=== PATIENT | male | born 1965 | race Caucasian/White ===

== ENCOUNTER 2017-12-31 06:31 | Inpatient (IN) | payer SELFPAY ==
[2017-12-31 06:31] VITALS: BMI 28.7
[2017-12-31] MEDS ORDERED: Sodium Chloride 0.9% 1,000 ML IV STA (07:12)
--- NOTE | 2017-12-31 07:17 | ED PDOC ---
HPI: Psych/Substance Abuse Time Seen by Provider: 12/31/17 07:04 Chief Complaint (Nursing): Psychiatric Evaluation Chief Complaint (Provider): Suicidal ideation History Per: Patient History/Exam Limitations: no limitations Onset/Duration Of Symptoms: Hrs (this morning) Associated Symptoms: Suicidal Thoughts, Suicidal Plan Additional Complaint(s): Christiano Osorio is a 52 year old male, with a past medical history of HTN, who presents to the emergency department for suicidal ideation with plan to jump in front of bus this morning. Patient attributes it to chronic alcohol abuse and wanting to stop. Patient reports last drink on Wednesday but had a few sips of Nyquil last night. He denies other drug use or other medical complaints. PMD: None provided. Past Medical History Reviewed: Historical Data, Nursing Documentation, Vital Signs Vital Signs: Last Vital Signs Temp 98.3 F 12/31/17 06:40 Pulse 111 H 12/31/17 06:40 Resp 19 12/31/17 06:40 BP 159/111 H 12/31/17 06:40 Pulse Ox 99 12/31/17 06:40 - Medical History PMH: Anxiety, HTN Denies: Diabetes, Hepatitis, HIV, Hypercholesterolemia, Mitral Valve Prolapse , Pericarditis, Peripheral Edema, Chronic Kidney Disease, Seizures, Sexually Transmitted Disease - Surgical History Surgical History: Appendectomy Denies: Pacemaker - Family History Family History: States: Unknown Family Hx - Social History Current smoker - smoking cessation education provided: No Alcohol: > 2 Drinks/Day Drugs: Denies - Immunization History Hx Tetanus Toxoid Vaccination: No Hx Influenza Vaccination: No Hx Pneumococcal Vaccination: No - Home Medications Home Medications: Ambulatory Orders Medication Instructions Recorded Irbesartan/Hydrochlorothiazide 1 tab PO BID 07/22/16 [Irbesartan-Hydrochlorothiazide 12.5 mg-150 mg] - Allergies Allergies/Adverse Reactions: Allergies Allergy/AdvReac Type Severity Reaction Status Date / Time meperidine AdvReac Intermediate DIZZINESS Verified 07/22/16 17:55 Review of Systems ROS Statement: Except As Marked, All Systems Reviewed And Found Negative Psych: Positive for: Suicidal ideation (with plan) Physical Exam - Reviewed Nursing Documentation Reviewed: Yes Vital Signs Reviewed: Yes - Physical Exam Appears: Positive for: No Acute Distress Head Exam: Positive for: ATRAUMATIC, NORMAL INSPECTION, NORMOCEPHALIC Skin: Positive for: Normal Color, Warm, Dry Eye Exam: Positive for: Normal appearance, EOMI, PERRL Neck: Positive for: Painless ROM Cardiovascular/Chest: Positive for: Regular Rate, Rhythm. Negative for: Murmur Respiratory: Positive for: Normal Breath Sounds. Negative for: Respiratory Distress Gastrointestinal/Abdominal: Positive for: Normal Exam, Soft. Negative for: Tenderness, Guarding, Rebound Back: Positive for: Normal Inspection Extremity: Positive for: Normal ROM (upper and lower extremities). Negative for : Deformity, Swelling Neurologic/Psych: Positive for: Alert, Oriented. Negative for: Motor/Sensory Deficits - Laboratory Results Result Diagrams: 12/31/17 07:52 12/31/17 07:52 - ECG O2 Sat by Pulse Oximetry: 99 (RA) Pulse Ox Interpretation: Normal Medical Decision Making Medical Decision Making: Time: 07:04 Initial Plan: --EKG --Acetaminophen --Alcohol serum --CMP --Drug screen, urine --Salicylate --Urine dipstick --CBC w/ differential --Chest portable [RAD] --Ativan 0.5mg PO --Sodium Chloride 1,000 ml IV 150 mls/hr --Reevaluation Medically stable for psychiatric admission ----- Scribe Attestation: Documented by Adam Anderson, acting as a scribe for Catracho Hanson MD. Provider Scribe Attestation: All medical record entries made by the Scribe were at my direction and personally dictated by me. I have reviewed the chart and agree that the record accurately reflects my personal performance of the history, physical exam, medical decision making, and the department course for this patient. I have also personally directed, reviewed, and agree with the discharge instructions and disposition. 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 This is because of the severity of symptoms shown, intensity of services needed, and/or the medical risk in this patient being treated as an outpatient. - POA Present On Arrival: None
[2017-12-31 08:09] LABS: ALB/GLOB RATIO 1.3 (1.0-2.1); ALBUMIN 4.4 g/dL (3.5-5.0); ALT/SGPT 47 U/L (21-72); AST/SGOT 46 U/L (17-59); BLOOD UREA NITROGEN 9 mg/dl (9-20); CALCIUM 9.1 mg/dL (8.4-10.2); GFR NON-AFRICAN AMERICAN > 60
[2017-12-31 08:10] LABS: ACETAMINOPHEN < 10.0 ug/ml (10.0-30.0); SALICYLATE < 1.0 mg/dl
[2017-12-31 08:17] LABS: BARBITURATES, UR NEGATIVE (NEGATIVE); BENZODIAZEPINES, UR NEGATIVE (NEGATIVE); OPIATES, UR NEGATIVE (NEGATIVE); PHENCYCLIDINE, UR NEGATIVE (NEGATIVE)
[2017-12-31 08:28] LABS: BASO # 0.1 K/uL (0.0-0.2); BASO % 0.6 % (0.0-2.0); EOS # 0.1 K/uL (0.0-0.7); EOS % 1.7 % (0.0-4.0); HEMOGLOBIN 17.5 g/dL (12.0-18.0); LYMPH # 2.4 K/uL (1.0-4.3); LYMPH % 28.5 % (20.0-40.0); MEAN CELL VOLUME 97.7 fl (80.0-94.0); MEAN CORPUSCULAR HEMOGLOBIN 34.1 pg (27.0-31.0); MEAN CORPUSCULAR HGB CONC 34.8 g/dL (33.0-37.0); MEAN PLATELET VOLUME 7.8 fl (7.2-11.7); MONO # 0.6 K/uL (0.0-0.8); MONO % 7.3 % (0.0-10.0); NEUT # 5.3 K/uL (1.8-7.0); NEUT % 61.9 % (50.0-75.0); NRBC % 0.2 % (0.0-0.0); RBC 5.14 Mil/uL (4.40-5.90); RED CELL DISTRIBUTION WIDTH 12.8 % (11.5-14.5); WHITE BLOOD COUNT 8.5 K/uL (4.8-10.8)
--- NOTE | 2017-12-31 09:12 | RAD ---
Date of service: 12/31/2017 HISTORY: cough COMPARISON: No prior. FINDINGS: LUNGS: Carotid bronchovascular markings are due favored at the bilateral bases over definitive infiltrates though limited airspace disease difficult to completely exclude. Clinically correlate further. PLEURA: No significant pleural effusion identified, no pneumothorax apparent. CARDIOVASCULAR: Borderline cardiomegaly. No pulmonary vascular congestion apparent. Cardiac size likely magnified. OSSEOUS STRUCTURES: No significant abnormalities. VISUALIZED UPPER ABDOMEN: Normal. OTHER FINDINGS: None. IMPRESSION: Borderline bilateral basilar airspace disease. Clinically correlate further as crowding of the bronchovascular markings is clearly identified and may be simulating early airspace disease. No pulmonary vascular congestion.
[2017-12-31 11:07] VITALS: O2SAT 98
[2017-12-31] MEDS ORDERED: DiphenhydrAMINE 50 mg/ml Inj IM PRN (12:41)
[2017-12-31] MEDS ORDERED: Alum-Mag Hydrox-Simethicone Susp (30 mL) PO PRN (12:41)
[2017-12-31] MEDS ORDERED: Magnesium Hydroxide Susp 30 ml UD PO PRN (12:41)
--- NOTE | 2017-12-31 15:48 | PCM.PSYCH ---
Initial Psychiatric Evaluation - Initial Psychiatric Evaluation Type of Admission: Voluntary Legal Status: Capacity Chief Complaint (in patient's own words): I need to stop drinking Patient's Reaction to Hospitalization: pt requested help History of Present Illness and Precipitating Events: pt is 52 ys old male with previous psychiatric diagnosis of alcohol use disorder and depression, currently non compliant with treatment or follow up, has been increasingly depressed due to loosing his job and financial difficulties, relapsed on alcohol using half a pint daily, on day of evaluation started having suicidal ideation with plan to walk infront of a bus came to ER seeking help pt on the unit presented with depressed mood and affect reported feeling hopeless and helpless , low energy , increased anxiety and poor sleep reported passive suicidal ideation without active plan on the unit denied , command hallucinations denied homicidal ideation Current Medications: Active Medications Generic Name Dose Route Start Last Admin Trade Name Freq PRN Reason Stop Dose Admin Acetaminophen 650 mg 12/31/17 12:41 Tylenol 325mg Tab PO Q4 PRN Pain, moderate (4-7) Al Hydrox/Mg Hydrox/Simethicone 30 ml 12/31/17 12:41 Maalox Plus 30 Ml PO Q4 PRN Dyspepsia Chlordiazepoxide 10 mg 12/31/17 13:00 Librium PO TID LETICIA Diphenhydramine HCl 50 mg 12/31/17 12:41 Benadryl IM Q6 PRN Extrapyramidal S/S Unable PO Diphenhydramine HCl 50 mg 12/31/17 12:41 Benadryl PO Q6 PRN Extrapyramidal Symptoms Gabapentin 200 mg 12/31/17 13:00 12/31/17 12:53 Neurontin PO 200 mg TID LETICIA Administration Haloperidol 5 mg 12/31/17 12:41 Haldol PO Q6 PRN Agitation Haloperidol Lactate 5 mg 12/31/17 12:41 Haldol IM Q6 PRN Agitation, Unable to Take PO Lorazepam 1 mg 12/31/17 12:48 Ativan PO TID PRN Anxiety Magnesium Hydroxide 30 ml 12/31/17 12:41 Milk Of Magnesia PO HS PRN Constipation Metoprolol Tartrate 100 mg 12/31/17 12:15 12/31/17 12:51 Lopressor PO 100 mg Q12 LETICIA Administration Trazodone HCl 50 mg 12/31/17 22:00 Desyrel PO HS LETICIA Past Psychiatric History - Past Psychiatric History Explanation of prior treatment: two inpatient hospitalizations three alcohol rehab programs hx of non compliance History of ETOH/Drug Use: alcohol use since age 12 Pertinent Medical Hx (Current Medical&Sleep Prob, Allergies): Allergies Allergy/AdvReac Type Severity Reaction Status Date / Time meperidine AdvReac Intermediate DIZZINESS Verified 07/22/16 17:55 Metoprolol Tartrate [Lopressor] 100 mg PO Q12 12/31/17 Telmisartan [Micardis] 40 mg PO DAILY 12/31/17 Mental Status Examination - Personal Presentation Personal Presentation: Looks older than stated age - Affect Affect: Constricted, Depressed - Motor Activity Motor Activity: Psychomotor Retardation - Reliability in Providing Information Reliability in Providing Information: Fair - Speech Speech: Relevant - Mood Mood: Depressed, Anxious - Formal Thought Process Formal Thought Process: Circumstantial - Hallucinations/Delusions Additional comments: pt denied perceptual disturbances, non elicited - Obsessions/Compulsions Obsessions: No Compulsions: No - Cognitive Functions Orientation: Person, Place Sensorium: Alert Attention/Concentration: Attentive Abstract Thinking: [place] Judgement: Imparied, as evidence by: Poor judgement, Imparied, as evidence by: Lack of insight into illness - Strength & Assets Inventory Strength & Assets Inventory: Life experience - Limitations Additional comments: poor compliance DSM 5 DX - DSM 5 DSM 5 Diagnosis: alcohol induced mood disorder with depressive features alcohol use disorder depression - Recommended/Plan of Treatment Treatment Recommendations and Plan of Treatment: pt will be started on librium protocol and monitored for symptoms and signs of alcohol withdrawal pt will be started on neurontin 200mg tid for anxiety trazidone 50mg qhs for insomnia internal medicine consult motivational group and supportive therapy
--- NOTE | 2017-12-31 16:58 | CP.PCM.CON ---
History of Present Illness - History of Present Illness History of Present Illness: 52 yo male with history of ETOH abuse admitted to psyche unit because of worsening depression. Review of Systems - Review of Systems All systems: reviewed and no additional remarkable complaints except (aside from those mentioned above, 12 point system review were negative by me) Past Patient History - Tetanus Immunizations Tetanus Immunization: Unknown - Past Social History Smoking Status: Never Smoked Chewing Tobacco Use: No Cigar Use: No Alcohol: > 2 Drinks/Day Drugs: Denies - CARDIAC Hx Hypertension: Yes - PULMONARY Hx Respiratory Disorders: No - NEUROLOGICAL Hx Neurological Disorder: No - HEENT Hx HEENT Problems: No - RENAL Hx Chronic Kidney Disease: No Hx Kidney Stones: No Hx Neurogenic Bladder: No - ENDOCRINE/METABOLIC Hx Endocrine Disorders: No - HEMATOLOGICAL/ONCOLOGICAL Hx Blood Disorders: No - INTEGUMENTARY Hx Dermatological Problems: No - MUSCULOSKELETAL/RHEUMATOLOGICAL Hx Musculoskeletal Disorders: No - GASTROINTESTINAL Hx Gastrointestinal Disorders: No - GENITOURINARY/GYNECOLOGICAL Hx Genitourinary Disorders: No - PSYCHIATRIC Hx Depression: Yes Hx Substance Use: No - SURGICAL HISTORY Hx Appendectomy: Yes - ANESTHESIA Hx Anesthesia: Yes Hx Anesthesia Reactions: No Hx Malignant Hyperthermia: No Has any member of the family had a problem w/ anesthesia?: No Meds Allergies/Adverse Reactions: Allergies Allergy/AdvReac Type Severity Reaction Status Date / Time meperidine AdvReac Intermediate DIZZINESS Verified 07/22/16 17:55 - Medications Medications: Current Medications Acetaminophen (Tylenol 325mg Tab) 650 mg PO Q4 PRN PRN Reason: Pain, moderate (4-7) Al Hydrox/Mg Hydrox/Simethicone (Maalox Plus 30 Ml) 30 ml PO Q4 PRN PRN Reason: Dyspepsia Chlordiazepoxide (Librium) 10 mg PO TID [facility] Last Admin: 12/31/17 16:12 Dose: 10 mg Diphenhydramine HCl (Benadryl) 50 mg IM Q6 PRN PRN Reason: Extrapyramidal S/S Unable PO Diphenhydramine HCl (Benadryl) 50 mg PO Q6 PRN PRN Reason: Extrapyramidal Symptoms Gabapentin (Neurontin) 200 mg PO TID [facility] Last Admin: 12/31/17 16:12 Dose: 200 mg Haloperidol (Haldol) 5 mg PO Q6 PRN PRN Reason: Agitation Haloperidol Lactate (Haldol) 5 mg IM Q6 PRN PRN Reason: Agitation, Unable to Take PO Lorazepam (Ativan) 1 mg PO TID PRN PRN Reason: Anxiety Magnesium Hydroxide (Milk Of Magnesia) 30 ml PO HS PRN PRN Reason: Constipation Metoprolol Tartrate (Lopressor) 100 mg PO Q12 [facility] Last Admin: 12/31/17 12:51 Dose: 100 mg Trazodone HCl (Desyrel) 50 mg PO HS [facility] Physical Exam - Constitutional Appears: No Acute Distress - Head Exam Head Exam: ATRAUMATIC - Eye Exam Eye Exam: absent: Scleral icterus - ENT Exam ENT Exam: Mucous Membranes Moist - Neck Exam Neck exam: Negative for: Meningismus - Respiratory Exam Respiratory Exam: absent: Rales, Rhonchi, Wheezes, Respiratory Distress - Cardiovascular Exam Cardiovascular Exam: REGULAR RHYTHM, +S1, +S2 - GI/Abdominal Exam GI & Abdominal Exam: Soft. absent: Tenderness - Rectal Exam Rectal Exam: Deferred - Extremities Exam Extremities exam: Negative for: calf tenderness, pedal edema - Back Exam Back exam: NORMAL INSPECTION - Neurological Exam Neurological exam: Alert, Oriented x3 - Psychiatric Exam Psychiatric exam: Normal Affect - Skin Skin Exam: Dry, Intact Results - Vital Signs Recent Vital Signs: Last Vital Signs Temp 98 F 12/31/17 11:07 Pulse 105 H 12/31/17 12:51 Resp 101 H 12/31/17 11:32 BP 164/75 H 12/31/17 12:51 Pulse Ox 98 12/31/17 11:07 - Labs Result Diagrams: 12/31/17 07:52 12/31/17 07:52 Labs: Laboratory Results - last 24 hr 12/31/17 12/31/17 12/31/17 07:52 07:52 07:52 WBC 8.5 RBC 5.14 Hgb 17.5 Hct 50.2 MCV 97.7 H MCH 34.1 H MCHC 34.8 RDW 12.8 Plt Count 271 MPV 7.8 Neut % (Auto) 61.9 Lymph % (Auto) 28.5 [place] % (Auto) 7.3 Eos % (Auto) 1.7 Baso % (Auto) 0.6 Neut # (Auto) 5.3 Lymph # (Auto) 2.4 [place] # (Auto) 0.6 Eos # (Auto) 0.1 Baso # (Auto) 0.1 Sodium 143 Potassium 3.7 Chloride 103 Carbon Dioxide 22 Anion Gap 22 H BUN 9 Creatinine 0.9 Est GFR ( Amer) > 60 Est GFR (Non-Af Amer) > 60 Random Glucose 138 H Calcium 9.1 Total Bilirubin 0.7 AST 46 ALT 47 Alkaline Phosphatase 71 Total Protein 7.8 Albumin 4.4 Globulin 3.4 Albumin/Globulin Ratio 1.3 Salicylates < 1.0 Urine Opiates Screen Urine Methadone Screen Acetaminophen < 10.0 L Ur Barbiturates Screen Ur Phencyclidine Scrn Ur Amphetamines Screen U Benzodiazepines Scrn U Oth Cocaine Metabols U Cannabinoids Screen Alcohol, Quantitative 135 H 12/31/17 07:52 WBC RBC Hgb Hct MCV MCH MCHC RDW Plt Count MPV Neut % (Auto) Lymph % (Auto) [place] % (Auto) Eos % (Auto) Baso % (Auto) Neut # (Auto) Lymph # (Auto) [place] # (Auto) Eos # (Auto) Baso # (Auto) Sodium Potassium Chloride Carbon Dioxide Anion Gap BUN Creatinine Est GFR ( Amer) Est GFR (Non-Af Amer) Random Glucose Calcium Total Bilirubin AST ALT Alkaline Phosphatase Total Protein Albumin Globulin Albumin/Globulin Ratio Salicylates Urine Opiates Screen Negative Urine Methadone Screen Negative Acetaminophen Ur Barbiturates Screen Negative Ur Phencyclidine Scrn Negative Ur Amphetamines Screen Negative U Benzodiazepines Scrn Negative U Oth Cocaine Metabols Negative U Cannabinoids Screen Negative Alcohol, Quantitative Assessment & Plan (1) Depression Status: Acute Comment: psyche is managing (2) Alcohol abuse Status: Acute Comment: psyche is managing (3) HTN (hypertension) Status: Chronic Comment: BP elevated. continue Metoprolol and Telmisartan
--- NOTE | 2017-12-31 18:23 | PCM.BM ---
<Carmen Geronimo - Last Filed: 12/31/17 18:25> Treatment Plan Problems - Problems identified on initial assessmt Hopelessness/Helplessness Date Initiated: 12/31/17 Time Initiated: 18:21 Assessment reference: NA Status: Active Altered Sleep Patterns Date Initiated: 12/31/17 Time Initiated: 18:21 Assessment reference: NA Status: Active Knowledge Deficit:Alcohol Use Date Initiated: 12/31/17 Time Initiated: 18:24 Assessment reference: NA Status: Active Treatment assets and liabiliti Patient Assests: ADL independent, physically healthy, good support system Patient Liabilities: financial problems (alcohol use), other - Milieu Protocol Maintain good personal hygiene: daily Encourage regular showers, daily Remind patient to perform daily oral care, daily Assist patient to perform ADL's Maintain personal safety: daily Educate patient to report safety concerns to staff, daily Monitor environment for contraband/sharps, every shift Educate patient to report safety concerns to staff, every shift Monitor environment for contraband/sharps Medication safety: Monitor for expected outcome, potential side effects: daily, every shift, Assess barriers to learning: daily, every shift, Assess readiness for medication education: daily, every shift Milieu Narrative: pt will be started on librium protocol and monitored for symptoms and signs of alcohol withdrawal pt will be started on neurontin 200mg tid for anxiety trazidone 50mg qhs for insomnia internal medicine consult motivational group and supportive therapy Discharge/Continuing Care - Treatment Team Participation Patient/Family/SO Statement: pt will be started on librium protocol and monitored for symptoms and signs of alcohol withdrawal pt will be started on neurontin 200mg tid for anxiety trazidone 50mg qhs for insomnia internal medicine consult motivational group and supportive therapy <Hieu Alba - Last Filed: 01/05/18 15:57> Treatment Plan Problems - Problems identified on initial assessmt Hopelessness/Helplessness Date Initiated: 12/31/17 Time Initiated: 18:21 Assessment reference: NA Status: Active Altered Sleep Patterns Date Initiated: 12/31/17 Time Initiated: 18:21 Assessment reference: NA Status: Active Knowledge Deficit:Alcohol Use Date Initiated: 12/31/17 Time Initiated: 18:24 Assessment reference: NA Status: Active Knowledge Deficit Date Initiated: 12/31/17 Time Initiated: 18:24 Assessment reference: NA Status: Active Family Contact Family involvement: Family/SO is involved Family contact: Patient agrees to contact, Family has been contacted by patient , Telephone contact initiated by staff Family contact name: Bijal - Sister Family contacted how many times per week?: 3 Family contact comment: Shiftman spoke with pt's sister, Bijal [phone], who reported that she would be accepting pt to live with her for the time being. Bijal reported that pt often touches on things very superficially and will not go into his emotions with any depth. Pt spoke to writer producer about emotional trauma that pt experienced around the age of 37 when his friend from cancer and got . Bijal reported that she will keep pt accountable and wants to help him apply for unemployment. Bijal believes that there are bad influences in [place] that are not good for pt's drinking. Pt's sister reported that she will pick pt up on 01/05/18 at 1600 as she must pick her children up from school first. - Goals for Treatment Patient goals for treatment: Pt is focused on remaining sober and completing outpatient treatment. Discharge/Continuing Care - Education Needs Education Needs: Family Medication, Family Diagnosis/Disease Process, Family Coping Skills, Family Placement options, Family Community resources, Family Aftercare Safety Plan, Patient Medication, Patient Diagnosis/Disease Process, Patient Coping Skills, Patient Placement options, Patient Community resources, Patient Aftercare Safety Plan - Discharge Discharge Criteria: Tolerates medication w/o severe side effects, Free of Suicidal thoughts, Normal sleep pattern, No longer exhibiting s/s of withdrawal , Reduction of target symptoms Discharge to:: Home, With Family - Treatment Team Participation Discussed with Family/SO: Yes Was Patient/Family/SO present at Treatment Team Meeting: Yes
[2018-01-01 07:51] LABS: T4 7.04 ug/dl (5.5-11.0)
--- NOTE | 2018-01-01 09:00 | CARD ---
APPROVED REPORT Date of service: 12/31/2017 EKG Measurement Heart [id number] <Conclusion> Normal sinus rhythm Prolonged QT Abnormal ECG
--- NOTE | 2018-01-01 09:17 | PCM.PYCHPN ---
Psychiatric Progress Note - Psychiatric Progress Note Patient seen today, length of contact: Pt evaluated, chart reviewed Patient Chief Complaint: "I have a drinking problem." Problems Identified/Issues Discussed: Patient reports that he feels anxious and depressed and acknowledges that he has a severe alcohol use disorder. He reports that prior to admission he had suicidal ideation to jump in front of a bus, but not longer has suicidal thoughts. He reports feeling mildly tremulous at times, but denies AH/VH/ paranoia/delusions. He reports improved sleep w/ Trazodone. No adverse effects to medications reported. We discussed gradual tapering of Librium daily. Medical Record Reviewed: Yes Consults ordered or reviewed: Medicine Mental Status Examination - Cognitive Function Orientation: Person, Place, Situation, Time Memory: Intact Attention: WNL Concentration: WNL Association: WNL Fund of Knowledge: [facility] Decription of patient's judgement and insights: Improving I/J - Mood Mood: Depressed, Anxious - Affect Affect: Constricted, Depressed - Speech Speech: Appropriate - Formal Thought Process Formal Thought Process: No Impairment Psychotic Thoughts and Behaviors: NO AH/VH/paranoia/delusions - Suicidal Ideation Suicidal Ideation: No - Homicidal Ideation Homicidal Ideation: No Goal/Treatment Plan - Goal/Treatment Plan Need for Continued Stay: Remain at risks for inpatient hospitalization, Severe depression anxiety, Discharge may exacerbated symptoms Progress Toward Problem(s) and Goals/Treatment Plan: Alcohol Induced Mood Disorder; Alcohol Use Disorder -Taper Librium gradually; will monitor for signs/symptoms of ETOH withdrawal -Continue Neurontin and Trazodone -Medicine consult -Psychoeducation -Individual and group therapy -Disposition planning
--- NOTE | 2018-01-02 08:36 | PCM.PYCHPN ---
Psychiatric Progress Note - Psychiatric Progress Note Patient seen today, length of contact: Pt evaluated, chart reviewed Patient Chief Complaint: "I have a drinking problem." Problems Identified/Issues Discussed: Patient reports that he feels anxious and is worried about relapsing again upon discharge. He feels less depressed, but is concerned that he became so depressed that he even considered suicide as an option recently. He denies acute suicidal ideation/plan/intent. He reports poor sleep last night. He denies AH/VH/paranoia/delusions. No adverse effects to medications reported. We discussed gradual tapering of Librium daily. No current signs/symptoms of ETOH withdrawal. Medication Change: Yes (Taper Librium) Medical Record Reviewed: Yes Consults ordered or reviewed: Medicine Mental Status Examination - Cognitive Function Orientation: Person, Place, Situation, Time Memory: Intact Attention: WNL Concentration: WNL Association: WNL Fund of Knowledge: [facility] Decription of patient's judgement and insights: Improving I/J - Mood Mood: Depressed, Anxious - Affect Affect: Constricted, Depressed - Speech Speech: Appropriate - Formal Thought Process Formal Thought Process: No Impairment Psychotic Thoughts and Behaviors: NO AH/VH/paranoia/delusions - Suicidal Ideation Suicidal Ideation: No - Homicidal Ideation Homicidal Ideation: No Goal/Treatment Plan - Goal/Treatment Plan Need for Continued Stay: Remain at risks for inpatient hospitalization, Severe depression anxiety, Discharge may exacerbated symptoms Progress Toward Problem(s) and Goals/Treatment Plan: Alcohol Induced Mood Disorder; Alcohol Use Disorder -Taper Librium gradually; will monitor for signs/symptoms of ETOH withdrawal -Continue Neurontin and Trazodone -Medicine consult -Psychoeducation -Individual and group therapy -Disposition planning
--- NOTE | 2018-01-03 15:07 | PCM.PYCHPN ---
Psychiatric Progress Note - Psychiatric Progress Note Patient seen today, length of contact: Pt evaluated, chart reviewed Patient Chief Complaint: I want to do outpatient rehab Problems Identified/Issues Discussed: pt evaluated with treatment team, continues to feel anxious and depressed, motivational therapy provided in reference to effect of alcohol use on current mental status , discussed with pt referral to [facility] outpatient on discharge, also discussed attending AA meetings encouraged pt to attend groups pt denied any current thoughts of self harm on the unit Medical Problems: two inpatient hospitalizations three alcohol rehab programs hx of non compliance DSM 5 Symptoms Update: alcohol induced mood disorder alcohol use disorder Medication Change: Yes (Taper Librium) Medical Record Reviewed: Yes Mental Status Examination - Cognitive Function Orientation: Person, Place, Situation, Time Memory: Intact Attention: WNL Concentration: WNL Association: WNL Fund of Knowledge: WNL - Mood Mood: Depressed, Anxious - Affect Affect: Constricted, Depressed - Speech Speech: Appropriate - Formal Thought Process Formal Thought Process: No Impairment Psychotic Thoughts and Behaviors: pt denied, non elicited - Suicidal Ideation Suicidal Ideation: No - Homicidal Ideation Homicidal Ideation: No Goal/Treatment Plan - Goal/Treatment Plan Need for Continued Stay: Remain at risks for inpatient hospitalization, Severe depression anxiety, Discharge may exacerbated symptoms Progress Toward Problem(s) and Goals/Treatment Plan: discontinue librium ativan prn for symptoms and signs of alcohol withdrawal neurontin 200mg tid for anxiety trazidone 50mg qhs for insomnia motivational group and supportive therapy
[2018-01-04 09:30] VITALS: TEMP 96.1
--- NOTE | 2018-01-04 13:48 | PCM.PYCHPN ---
Psychiatric Progress Note - Psychiatric Progress Note Patient seen today, length of contact: Pt evaluated, chart reviewed Patient Chief Complaint: I want to do outpatient rehab Problems Identified/Issues Discussed: pt evaluated reported feeling less anxious with the increase in neurontin, motivated to attend outpatient rehab and AA meetings, reported feeling less depressed, affect brighter, attending groups , no reported side effects of medications pt denied any current thoughts of self harm on the unit Medical Problems: two inpatient hospitalizations three alcohol rehab programs hx of non compliance DSM 5 Symptoms Update: alcohol induced mood disorder with depressive features alcohol use disorder generalized anxiety disorder Medication Change: No Medical Record Reviewed: Yes Mental Status Examination - Cognitive Function Orientation: Person, Place, Situation, Time Memory: Intact Attention: WNL Concentration: WNL Association: WNL Fund of Knowledge: WNL - Mood Mood: Depressed, Anxious - Affect Affect: Constricted, Depressed - Speech Speech: Appropriate - Formal Thought Process Formal Thought Process: No Impairment Psychotic Thoughts and Behaviors: pt denied, non elicited - Suicidal Ideation Suicidal Ideation: No - Homicidal Ideation Homicidal Ideation: No Goal/Treatment Plan - Goal/Treatment Plan Need for Continued Stay: Remain at risks for inpatient hospitalization, Severe depression anxiety, Discharge may exacerbated symptoms Progress Toward Problem(s) and Goals/Treatment Plan: neurontin 200mg tid for anxiety trazdone 50mg qhs for insomnia motivational group and supportive therapy
[2018-01-05 09:14] VITALS: BP 150/87; PULSE 76
[2018-01-05 09:22] VITALS: RESP 18
--- NOTE | 2018-01-05 12:42 | PCM.PYCHDC ---
Mental Status Examination - Mental Status Examination Orientation: Person, Place, Situation, Time Memory: Intact Mood: Neutral Affect: Broad Speech: Appropriate Attention: WNL Concentration: WNL Association: WNL Fund of Knowledge: WNL Formal Thought Process: No Impairment Description of patient's judgement and insight: partial insight and fair judgment Psychotic Thoughts and Behaviors: pt denied, non elicited Suicidal Ideation: No Current Homicidal Ideation?: No Discharge Summary - Discharge Note Reason for Hospitalization: pt is 52 ys old male with previous psychiatric diagnosis of alcohol use disorder and depression, currently non compliant with treatment or follow up, has been increasingly depressed due to loosing his job and financial difficulties, relapsed on alcohol using half a pint daily, on day of evaluation started having suicidal ideation with plan to walk infront of a bus came to ER seeking help pt on the unit presented with depressed mood and affect reported feeling hopeless and helpless , low energy , increased anxiety and poor sleep reported passive suicidal ideation without active plan on the unit denied , command hallucinations denied homicidal ideation Consultations:: List each consultation separately and include: 1. Reason for request. 2. Findings. 3. Follow-up Summary of Hospital Course include:: 1. Description of specific treatment plan utilized for patients during their course of treatmen. 2. Summarize the time- course for resolution of acute symptoms and/or regressed behaviors. 3. Describe issues identified and worked on during hospitalization. 4. Describe medication utilized. 5. Describe medical problems identified and treated. 6. Reassessment of suicide risk Summary of Hospital Course: pt on admission was placed on librium protocol and monitored for symptoms and signs of alcohol withdrawal pt was placed on trazodone for insomnia and neurontin for anxiety motivational therapy provided for alcohol use pt was compliant with treatment, attended groups, no reported side effects of medications on discharge, mental status was stable, pt denied any current suicidal or homicidal ideation, denied perceptual disturbances folow up arranged by social worker palliative care at outpatient [facility] program - Final Diagnosis (DSM 5) Condition upon Discharge: FAIR DSM 5: alcohol induced mood disorder with depressive features alcohol use disorder generalized anxiety disorder Disposition: HOME/ ROUTINE Follow-up Treatment Plan: neurontin 200mg tid for anxiety trazdone 50mg qhs for insomnia motivational group and supportive therapy Prescriptions/Medication Reconciliation: Gabapentin [Neurontin] 200 mg PO TID 30 Days #180 cap traZODone [Desyrel] 50 mg PO HS 30 Days #30 tab - Antipsychotic Medications Pt discharged on 2 or more routine antipsychotic medications: No
== END 2018-01-05 15:32 | disposition home or self-care (01) | DRG 895 ==
LOC: H.ER 06:31 → H.ERHOLD 09:21 → H.PSYCH 11:22
PROVIDERS: ADMIT Psychiatry & Neurology Psychiatry; ATTEND Psychiatry & Neurology Psychiatry
PROC: HZ57ZZZ Individual Psychotherapy for Substance Abuse Treatment, Motivational Enhancement (ICD-10-PCS; principal; 2017-12-31)
PROC: HZ59ZZZ Individual Psychotherapy for Substance Abuse Treatment, Supportive (ICD-10-PCS; 2017-12-31)
PROC: GZHZZZZ Group Psychotherapy (ICD-10-PCS; 2017-12-31)
DX: F10.94 Alcohol use, unspecified with alcohol-induced mood disorder (principal); R45.851 Suicidal ideations; Y90.6 Blood alcohol level of 120-199 mg/100 ml; F41.1 Generalized anxiety disorder; I10 Essential (primary) hypertension; G47.00 Insomnia, unspecified; Z91.19 Patient's noncompliance with other medical treatment and regimen; F32.9 Major depressive disorder, single episode, unspecified; Z59.9 Problem related to housing and economic circumstances, unspecified

== ENCOUNTER 2018-09-18 17:14 | Inpatient (IN) | payer OTHER ==
[2018-09-18 17:21] VITALS: O2SAT 97
[2018-09-18 17:22] VITALS: BMI 30.1
[2018-09-18] MEDS ORDERED: Multivitamin (MVI) 10 ML, Thiamine 100 MG, Folic Acid 1 MG in Sodium Chloride 0.9% 1,00... IV ONE (18:00)
--- NOTE | 2018-09-18 18:04 | ED PDOC ---
HPI: Psych/Substance Abuse Time Seen by Provider: 09/18/18 17:52 Chief Complaint (Nursing): Psychiatric Evaluation Chief Complaint (Provider): suicidal ideation History Per: Patient (52 y/o male here with suicidal ideation and attempt to harm self by jumping in front of bus. States bus did not hit him but patient called 911 to be evaluated. Admits drinking 3 wine bottles daily. Denies taking any medications for depression. last drink at 10am today) Past Medical History Reviewed: Historical Data, Nursing Documentation, Vital Signs Vital Signs: Last Vital Signs Temp 98.4 F 09/18/18 17:20 Pulse 116 H 09/18/18 17:20 Resp 20 09/18/18 17:20 BP 169/106 H 09/18/18 17:20 Pulse Ox 97 09/18/18 17:20 Primary Care Provider: FAMILY PROVIDER,NO - Medical History PMH: Anxiety, Depression, HTN Denies: Diabetes, Hepatitis, HIV, Hypercholesterolemia, Kidney Stones, Mitral Valve Prolapse, Pericarditis, Peripheral Edema, Chronic Kidney Disease, Seizures, Sexually Transmitted Disease - Surgical History Surgical History: Appendectomy Denies: Pacemaker - Family History Family History: States: Unknown Family Hx - Immunization History Hx Tetanus Toxoid Vaccination: No Hx Influenza Vaccination: No Hx Pneumococcal Vaccination: No - Home Medications Home Medications: Ambulatory Orders Medication Instructions Recorded Metoprolol Tartrate [Lopressor] 100 mg PO Q12 12/31/17 Telmisartan [Micardis] 40 mg PO DAILY 12/31/17 Gabapentin [Neurontin] 200 mg PO TID 30 Days #180 cap 01/05/18 traZODone [Desyrel] 50 mg PO HS 30 Days #30 tab 01/05/18 - Allergies Allergies/Adverse Reactions: Allergies Allergy/AdvReac Type Severity Reaction Status Date / Time meperidine AdvReac Intermediate DIZZINESS Verified 09/18/18 17:29 Review of Systems ROS Statement: Except As Marked, All Systems Reviewed And Found Negative Physical Exam - Reviewed Nursing Documentation Reviewed: Yes Vital Signs Reviewed: Yes - Physical Exam Appears: Positive for: Well, Non-toxic, No Acute Distress Head Exam: Positive for: ATRAUMATIC, NORMAL INSPECTION, NORMOCEPHALIC Skin: Positive for: Normal Color, Warm, DRY Eye Exam: Positive for: EOMI, Normal appearance, PERRL ENT: Positive for: Normal ENT Inspection Neck: Positive for: Normal, Painless ROM Cardiovascular/Chest: Positive for: Regular Rate, Rhythm Respiratory: Positive for: CNT, Normal Breath Sounds Gastrointestinal/Abdominal: Positive for: Normal Exam, Soft Back: Positive for: Normal Inspection Extremity: Positive for: Normal ROM Neurological/Psych: Positive for: Awake, Alert, Normal Tone - Laboratory Results Result Diagrams: 09/18/18 18:18 09/18/18 18:18 - ECG O2 Sat by Pulse Oximetry: 97 - Progress ED Course And Treament: LIBRIUM 50 MG IV X 1 DOSE BANANA BAG IV X 1 DOSE ATIVAN 1MG IV X 1 DOSE Disposition - Clinical Impression Clinical Impression: Alcohol intoxication, Suicidal behavior - Patient ED Disposition Is Patient to be Admitted: Transfer of Care - Disposition Disposition: Transfer of Care Disposition Time: 20:00 Condition: FAIR Patient Signed Over To: Susanne Garza Handoff Comments: urine tox/ua/repeat bmp/cxr/ekg PENDING CRISIS EVAL
[2018-09-18 18:26] LABS: BASO % 0.5 % (0.0-2.0); EOS % 0.4 % (0.0-4.0); HEMOGLOBIN 16.7 g/dL (12.0-18.0); LYMPH # 2.7 K/uL (1.0-4.3); LYMPH % 46.6 % (20.0-40.0); MEAN CELL VOLUME 100.8 fl (80.0-94.0); MEAN CORPUSCULAR HEMOGLOBIN 34.6 pg (27.0-31.0); MEAN CORPUSCULAR HGB CONC 34.3 g/dL (33.0-37.0); MEAN PLATELET VOLUME 8.4 fl (7.2-11.7); MONO # 0.5 K/uL (0.0-0.8); MONO % 8.3 % (0.0-10.0); NEUT # 2.5 K/uL (1.8-7.0); NEUT % 44.2 % (50.0-75.0); NRBC % 0.2 % (0.0-0.0); RBC 4.82 Mil/uL (4.40-5.90); RED CELL DISTRIBUTION WIDTH 13.8 % (11.5-14.5); WHITE BLOOD COUNT 5.8 K/uL (4.8-10.8)
[2018-09-18 18:36] LABS: ACETAMINOPHEN < 10.0 ug/ml (10.0-30.0); SALICYLATE < 1.0 mg/dl
[2018-09-18 19:05] LABS: ALB/GLOB RATIO 1.2 (1.0-2.1); ALBUMIN 4.9 g/dL (3.5-5.0); ALT/SGPT 110 U/L (21-72); AST/SGOT 153 U/L (17-59); BLOOD UREA NITROGEN 11 mg/dl (9-20); CALCIUM 8.8 mg/dL (8.4-10.2); GFR NON-AFRICAN AMERICAN > 60
[2018-09-18 20:19] LABS: GRANULAR CAST 22 /lpf (0-1); URINE BILIRUBIN NEGATIVE (NEGATIVE); URINE BLOOD MODERATE (NEGATIVE); URINE CLARITY SLIGHTY-CLOUDY (Clear); URINE COLOR YELLOW (YELLOW); URINE GLUCOSE (UA) NEG (NEGATIVE); URINE LEUKOCYTE ESTERASE NEG Leu/uL (Negative); URINE PROTEIN 100 mg/dL (NEGATIVE); URINE UROBILINOGEN 0.2-1.0 mg/dL (0.2-1.0)
[2018-09-18] MEDS ORDERED: Sodium Chloride 0.9% 1,000 ML IV STA ×2 (20:35→22:34)
[2018-09-18 20:40] LABS: BARBITURATES, UR NEGATIVE (NEGATIVE); BENZODIAZEPINES, UR NEGATIVE (NEGATIVE); OPIATES, UR NEGATIVE (NEGATIVE); PHENCYCLIDINE, UR NEGATIVE (NEGATIVE)
[2018-09-18 21:06] LABS: BLOOD UREA NITROGEN 11 mg/dl (9-20); GFR NON-AFRICAN AMERICAN > 60
[2018-09-19 00:30] LABS: BLOOD UREA NITROGEN 9 mg/dl (9-20); GFR NON-AFRICAN AMERICAN > 60
--- NOTE | 2018-09-19 03:30 | ED PDOC ---
- Laboratory Results Result Diagrams: 09/18/18 18:18 09/19/18 00:10 Lab Results: Total Bilirubin 0.8 mg/dl (0.2-1.3) 09/18/18 18:18 AST 153 U/L (17-59) H D 09/18/18 18:18 ALT 110 U/L (21-72) H D 09/18/18 18:18 Alkaline Phosphatase 91 U/L (38-126) 09/18/18 18:18 Total Protein 9.1 G/DL (6.3-8.2) H 09/18/18 18:18 Albumin 4.9 g/dL (3.5-5.0) 09/18/18 18:18 Globulin 4.2 gm/dL (2.2-3.9) H 09/18/18 18:18 Albumin/Globulin Ratio 1.2 (1.0-2.1) 09/18/18 18:18 Urine Color Yellow (YELLOW) 09/18/18 19:55 Urine Clarity Slighty-cloudy (Clear) 09/18/18 19:55 Urine pH 5.0 (5.0-8.0) 09/18/18 19:55 Ur Specific [place] 1.018 (1.003-1.030) 09/18/18 19:55 Urine Protein 100 mg/dL (NEGATIVE) 09/18/18 19:55 Urine Glucose (UA) Neg mg/dL (NEGATIVE) 09/18/18 19:55 Urine Ketones 20 mg/dL (NEGATIVE) 09/18/18 19:55 Urine Blood Moderate (NEGATIVE) 09/18/18 19:55 Urine Nitrate Negative (NEGATIVE) 09/18/18 19:55 Urine Bilirubin Negative (NEGATIVE) 09/18/18 19:55 Urine Urobilinogen 0.2-1.0 mg/dL (0.2-1.0) 09/18/18 19:55 Ur Leukocyte Esterase Neg Vinayak/uL (Negative) 09/18/18 19:55 Urine RBC (Auto) 4 /hpf (0-3) H 09/18/18 19:55 Hyaline Casts 3-5 /hpf (0-2) H 09/18/18 19:55 Granular Casts (Auto) 22 /lpf (0-1) 09/18/18 19:55 - ECG O2 Sat by Pulse Oximetry: 97 Medical Decision Making Medical Decision Making: Crisis evaluation completed. Repeat labs improved. Disposition - Clinical Impression Clinical Impression: Alcohol-induced mood disorder - POA Present On Arrival: None - Disposition Disposition: Admitted as In-Patient Disposition Time: 03:31 Condition: GOOD Instructions: Effects of Alcohol on Your Health
[2018-09-19] MEDS ORDERED: Alum-Mag Hydrox-Simethicone Susp (30 mL) PO PRN (06:15)
[2018-09-19] MEDS ORDERED: DiphenhydrAMINE 50 mg/ml Inj IM PRN (06:15)
[2018-09-19] MEDS ORDERED: Magnesium Hydroxide Susp 30 ml UD PO PRN (06:15)
--- NOTE | 2018-09-19 06:35 | PCM.BM ---
<Kimber Dalton Amaya - Last Filed: 09/19/18 06:32> Treatment Plan Problems - Problems identified on initial assessmt Self Harm Date Initiated: 09/19/18 Time Initiated: 06:32 Assessment reference: NA Status: Active Suicidal Ideation Date Initiated: 09/19/18 Time Initiated: 06:33 Assessment reference: NA Status: Active Hopelessness/ Helplessness Date Initiated: 09/19/18 Time Initiated: 06:33 Assessment reference: NA Status: Active Medication nonadherence Date Initiated: 09/19/18 Time Initiated: 06:35 Assessment reference: NA Status: Active Treatment assets and liabiliti Patient Assests: cooperative, self-reliant, ADL independent, physically healthy, good support system Patient Liabilities: live alone, relationship conflicts, substance abuse, medical problems - Milieu Protocol Maintain good personal hygiene: daily Encourage regular showers, every shift Remind patient to perform daily oral care, every shift Assist patient to perform ADL's Maintain personal safety: every shift Educate patient to report safety concerns to staff, every shift Monitor environment for contraband/sharps Medication safety: Monitor for expected outcome, potential side effects: every shift, Assess barriers to learning: every shift, Assess readiness for medication education: every shift <ShelialitzyLinda - Last Filed: 09/21/18 15:06> Treatment assets and liabiliti Patient Assests: adapts well, cooperative, educated (Pt. reports a partial college education. ), resourceful, self-reliant, ADL independent, physically healthy, good support system (Pt. reports having supportive and loving relationships with family (parents, brother, sister) and friends. Pt. reports having lunch with father weekly but recently canceling secondary to acute onset of sxs. ), negotiates basic needs, good past tx response (Pt. reported several short periods of maintainted sobriety.), cognitively intact Patient Liabilities: live alone (Pt. reports currently being homeless secondary to end of relationship with s/o. Pt. currently unsure if he can stay with family upon discharge.), financial problems ( Pt. 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 ), relationship conflicts (Pt. reports having a strained relationship with 1 sister. Pt. identifies ex-girlfriend as having been a primary source of support until recent break-up. ), substance abuse (Pt. reports ETOH abuse since age 17 with several periods of sobriety. Pt. reports recently drinking 1 bottles of wine/daily. Pt. reports most recent period of sobriety in November 2017 (40 days). Pt. reports extensive hx of detox with [facility] and inpatient substance abuse tx with [facility], [facility], and [facility]. Pt. reports long hx of involvement in AA. Pt. denies illicit substance abuse. ) Family Contact Family involvement: Family/SO is involved Family contact: Patient declines to allow family contact at present - Goals for Treatment Patient goals for treatment: Patient to continue stabilization on 3NP through medication management and group/supportive therapy to address sxs of depression as exhibited by feelings of hopelessness, improve sleep disturbances, and eliminate SI/. Patient to be encouraged to attend groups regularly to promote self-awareness, sobriety, and improve insight, compliance, coping skills and self-esteem. Patient to be provided with referral for appropriate level of aftercare to reduce risk of future hospitalizations and ensure safety in the community. Discharge/Continuing Care - Education Needs Education Needs: Patient Medication, Patient Diagnosis/Disease Process, Patient Coping Skills, Patient Community resources, Patient Aftercare Safety Plan - Discharge Discharge Criteria: Tolerates medication w/o severe side effects, Free of Suicidal thoughts, Normal sleep pattern, Ability to care for self, No longer exhibiting s/s of withdrawal Discharge to:: With Family, Fdc - Treatment Team Participation Patient/Family/SO Statement: 09/21/18 15:09 Pt. attended tx team to discuss progress on 3NP and tx goals. Pt. reports improvement in sxs of depression since admission as exhibited by decrease in social withdrawal, improvement in energy/motivation, and elimination of SI. Pt. continues to report sxs of depression as exhibited by feelings of sadness/guilt and sleep disturbances. Pt. reported improvement in sxs of withdrawal. Importance of down tapering Librium protocol explained. Pt. expressed not being interested in inpatient rehab referrals. Pt. reported having plans to return to a 12 step program, explaining that AA was the most successful in helping pt. maintain sobriety for the longest period of time. Pt. expressing feeling as though addressing sxs of depression will improve chances of maintaining sobr iety. Documentation Consultant explained benefits of being referred to an outpatient substance abuse program in addition to AA involvement in order to ensure proper medication management and therapy. Pt. agreeable. Pt. declined to provide consent for family, explaining not wanting family to be aware of pts relapse and re- hospitalization. Benefits of familys involvement in pts tx discussed. Pt. reported wanting to think on it. Pt. unsure of placement upon discharge, expressing belief that he will no longer be allowed to stay with family due to burning all his bridges. Discussed with Family/SO: No Was Patient/Family/SO present at Treatment Team Meeting: Yes <Morteza Brizuela - Last Filed: 09/21/18 15:17> - Diagnosis (1) Depression Status: Acute Interventions: psychotherapy, pharmacotherapy 09/21/18 15:17
[2018-09-19 08:37] LABS: HDL CHOLESTEROL 89 MG/DL (30-70)
[2018-09-19 08:48] LABS: LDL CHOLESTEROL 174 mg/dL (0-129)
--- NOTE | 2018-09-19 09:45 | PCM.PSYCH ---
Initial Psychiatric Evaluation - Initial Psychiatric Evaluation Type of Admission: Voluntary Legal Status: Capacity Chief Complaint (in patient's own words): I feel my life is worthless History of Present Illness and Precipitating Events: pt is 52 ys old male with previous diagnosis of generalized anxiety, depression and alcohol dependence , brought to ER after a suicidal attempt, jumping in front of a bus pt since last dischage has not been compliant with medications or follow up, relapsed on alcohol using about two bottles of wine daily, pt for past month has been unable to function at work resulting in loosing his job, he also became homeless, started feeling his life is worthless, feeling hopeless and helpless, attempted suicide by jumping infront of a bus on the unit continues to report passive suicidal ideation without active plan, denied perceptual disturbances, denied homicidal ideation Current Medications: Active Medications Generic Name Dose Route Start Last Admin Trade Name Freq PRN Reason Stop Dose Admin Acetaminophen 650 mg 09/19/18 06:15 Tylenol 325mg Tab PO Q4 PRN Pain, moderate (4-7) Al Hydrox/Mg Hydrox/Simethicone 30 ml 09/19/18 06:15 Maalox Plus 30 Ml PO Q4 PRN Dyspepsia Chlordiazepoxide 10 mg 09/19/18 09:29 Librium PO 09/19/18 09:30 STAT STA Chlordiazepoxide 25 mg 09/19/18 13:00 Librium PO TID LETICIA Diphenhydramine HCl 50 mg 09/19/18 06:15 Benadryl IM Q6 PRN Extrapyramidal S/S Unable PO Diphenhydramine HCl 50 mg 09/19/18 06:15 Benadryl PO Q6 PRN Extrapyramidal Symptoms Gabapentin 100 mg 09/19/18 13:00 Neurontin PO TID LETICIA Haloperidol 5 mg 09/19/18 06:15 Haldol PO Q4 PRN Agitation Haloperidol Lactate 5 mg 09/19/18 06:15 Haldol IM Q4 PRN Agitation, Unable to Take PO Lorazepam 2 mg 09/19/18 06:15 Ativan PO Q4 PRN Anxiety/Agitation Lorazepam 2 mg 09/19/18 06:15 Ativan IM Q4 PRN Anxiety/Agitation,Unable PO Losartan Potassium 50 mg 09/19/18 09:00 09/19/18 08:21 Cozaar PO 50 mg DAILY LETICIA Administration Magnesium Hydroxide 30 ml 09/19/18 06:15 Milk Of Magnesia PO HS PRN Constipation Metoprolol Tartrate 100 mg 09/19/18 09:00 09/19/18 08:21 Lopressor PO 100 mg Q12 LETICIA Administration Sertraline HCl 25 mg 09/20/18 09:00 Zoloft PO DAILY LETICIA Trazodone HCl 100 mg 09/19/18 22:00 Desyrel PO HS LETICIA Past Psychiatric History - Past Psychiatric History Explanation of prior treatment: hx of voluntary hospitalizations, hx of non compliance History of ETOH/Drug Use: alcohol abuse Pertinent Medical Hx (Current Medical&Sleep Prob, Allergies): Allergies Allergy/AdvReac Type Severity Reaction Status Date / Time meperidine AdvReac Intermediate DIZZINESS Verified 09/18/18 17:29 Metoprolol Tartrate [Lopressor] 100 mg PO Q12 12/31/17 Telmisartan [Micardis] 40 mg PO DAILY 12/31/17 Gabapentin [Neurontin] 200 mg PO TID 30 Days #180 cap 01/05/18 traZODone [Desyrel] 50 mg PO HS 30 Days #30 tab 01/05/18 Mental Status Examination - Personal Presentation Personal Presentation: Looks older than stated age Additional comments: disheveled tremulous - Affect Affect: Constricted, Depressed - Motor Activity Motor Activity: Psychomotor Retardation - Reliability in Providing Information Reliability in Providing Information: Fair - Speech Speech: Relevant - Mood Mood: Depressed, Anxious - Formal Thought Process Formal Thought Process: No Impairment - Cognitive Functions Orientation: Person, Place, Situation Sensorium: Alert Attention/Concentration: Easily distracted Estimate of Intelligence: Average Judgement: Imparied, as evidence by: Poor judgement, Imparied, as evidence by: Lack of insight into illness Memory: Recent intact, as evidence by: Ability to recall events of the day - Risk Risk: Suicidal, Withdrawal, Diminished functioning - Strength & Assets Inventory Strength & Assets Inventory: Life experience - Limitations Additional comments: poor compliance DSM 5 DX - DSM 5 DSM 5 Diagnosis: alcohol induced mood disorder with depressive features alcohol dependence generalized anxiety disorder major depression - Recommended/Plan of Treatment Treatment Recommendations and Plan of Treatment: start librium 25mg tid/ pt will be monitored for symptoms and signs of alcohol withdrawal start neurontin 300 mg tid start zoloft 250mg daily motivational group and supportive therapy internal medicine consult
--- NOTE | 2018-09-19 11:52 | CP.PCM.CON ---
History of Present Illness - History of Present Illness History of Present Illness: 52 yo male with history of HTN, depression and ETOH abuse admitted to psyche unit because of suicidal attempt. Review of Systems - Review of Systems All systems: reviewed and no additional remarkable complaints except (aside from those mentioned above, 12 point system review were negative by me) Past Patient History - Tetanus Immunizations Tetanus Immunization: Unknown - Past Social History Smoking Status: Never Smoked Chewing Tobacco Use: No Cigar Use: No Alcohol: > 2 Drinks/Day Drugs: Denies - CARDIAC Hx Cardiac Disorders: Yes Hx Hypertension: Yes - PULMONARY Hx Tuberculosis: No - NEUROLOGICAL HX Cerebrovascular Accident: No Hx Seizures: No - HEENT Hx HEENT Problems: No - RENAL Hx Chronic Kidney Disease: No - ENDOCRINE/METABOLIC Hx Endocrine Disorders: No - HEMATOLOGICAL/ONCOLOGICAL Hx Cancer: No Hx Human Immunodeficiency Virus (HIV): No - INTEGUMENTARY Hx Dermatological Problems: No - MUSCULOSKELETAL/RHEUMATOLOGICAL Hx Musculoskeletal Disorders: No - GASTROINTESTINAL Hx Gastrointestinal Disorders: No - GENITOURINARY/GYNECOLOGICAL Hx Sexually Transmitted Disorders: No - PSYCHIATRIC Hx Psychophysiologic Disorder: Yes - SURGICAL HISTORY Hx Appendectomy: Yes - ANESTHESIA Hx Anesthesia: Yes Hx Anesthesia Reactions: No Hx Malignant Hyperthermia: No Meds Allergies/Adverse Reactions: Allergies Allergy/AdvReac Type Severity Reaction Status Date / Time meperidine AdvReac Intermediate DIZZINESS Verified 09/18/18 17:29 - Medications Medications: Current Medications Acetaminophen (Tylenol 325mg Tab) 650 mg PO Q4 PRN PRN Reason: Pain, moderate (4-7) Al Hydrox/Mg Hydrox/Simethicone (Maalox Plus 30 Ml) 30 ml PO Q4 PRN PRN Reason: Dyspepsia Chlordiazepoxide (Librium) 25 mg PO TID LETICIA Diphenhydramine HCl (Benadryl) 50 mg IM Q6 PRN PRN Reason: Extrapyramidal S/S Unable PO Diphenhydramine HCl (Benadryl) 50 mg PO Q6 PRN PRN Reason: Extrapyramidal Symptoms Gabapentin (Neurontin) 300 mg PO TID LETICIA Haloperidol (Haldol) 5 mg PO Q4 PRN PRN Reason: Agitation Haloperidol Lactate (Haldol) 5 mg IM Q4 PRN PRN Reason: Agitation, Unable to Take PO Lorazepam (Ativan) 2 mg PO Q4 PRN PRN Reason: Anxiety/Agitation Lorazepam (Ativan) 2 mg IM Q4 PRN PRN Reason: Anxiety/Agitation,Unable PO Losartan Potassium (Cozaar) 50 mg PO DAILY [facility] Last Admin: 09/19/18 08:21 Dose: 50 mg Magnesium Hydroxide (Milk Of Magnesia) 30 ml PO HS PRN PRN Reason: Constipation Metoprolol Tartrate (Lopressor) 100 mg PO Q12 [facility] Last Admin: 09/19/18 08:21 Dose: 100 mg Sertraline HCl (Zoloft) 25 mg PO DAILY [facility] Trazodone HCl (Desyrel) 100 mg PO HS [facility] Physical Exam - Constitutional Appears: No Acute Distress - Head Exam Head Exam: ATRAUMATIC - Eye Exam Eye Exam: absent: Scleral icterus - ENT Exam ENT Exam: Mucous Membranes Moist - Neck Exam Neck exam: Negative for: Meningismus - Respiratory Exam Respiratory Exam: absent: Rales, Rhonchi, Wheezes, Respiratory Distress - Cardiovascular Exam Cardiovascular Exam: REGULAR RHYTHM, +S1, +S2 - GI/Abdominal Exam GI & Abdominal Exam: Soft. absent: Tenderness - Rectal Exam Rectal Exam: Deferred - Extremities Exam Extremities exam: Negative for: pedal edema - Back Exam Back exam: NORMAL INSPECTION - Neurological Exam Neurological exam: Alert, Oriented x3 - Psychiatric Exam Psychiatric exam: Normal Affect - Skin Skin Exam: Diaphoretic Results - Vital Signs Recent Vital Signs: Last Vital Signs Temp 98.0 F 09/19/18 09:00 Pulse 134 H 09/19/18 09:00 Resp 20 09/19/18 09:00 BP 194/96 H 09/19/18 09:00 Pulse Ox 97 09/19/18 06:24 - Labs Result Diagrams: 09/18/18 18:18 09/19/18 00:10 Labs: Laboratory Results - last 24 hr 09/18/18 09/18/18 09/18/18 18:18 18:18 18:18 WBC 5.8 RBC 4.82 Hgb 16.7 Hct 48.5 MCV 100.8 H D MCH 34.6 H MCHC 34.3 RDW 13.8 Plt Count 137 D MPV 8.4 Neut % (Auto) 44.2 L Lymph % (Auto) 46.6 H Story % (Auto) 8.3 Eos % (Auto) 0.4 Baso % (Auto) 0.5 Neut # (Auto) 2.5 Lymph # (Auto) 2.7 Story # (Auto) 0.5 Eos # (Auto) 0.0 Baso # (Auto) 0.0 Sodium 137 Potassium 4.3 Chloride 98 Carbon Dioxide 17 L Anion Gap 26 H BUN 11 Creatinine 0.8 Est GFR ( Amer) > 60 Est GFR (Non-Af Amer) > 60 POC Glucose (mg/dL) Random Glucose 127 H Calcium 8.8 Total Bilirubin 0.8 AST 153 H D ALT 110 H D Alkaline Phosphatase 91 Total Protein 9.1 H Albumin 4.9 Globulin 4.2 H Albumin/Globulin Ratio 1.2 Triglycerides Cholesterol LDL Cholesterol Direct HDL Cholesterol Urine Color Urine Clarity Urine pH Ur Specific Cyril Urine Protein Urine Glucose (UA) Urine Ketones Urine Blood Urine Nitrate Urine Bilirubin Urine Urobilinogen Ur Leukocyte Esterase Urine RBC (Auto) Hyaline Casts Granular Casts (Auto) Salicylates < 1.0 Urine Opiates Screen Urine Methadone Screen Acetaminophen < 10.0 L Ur Barbiturates Screen Ur Phencyclidine Scrn Ur Amphetamines Screen U Benzodiazepines Scrn U Oth Cocaine Metabols U Cannabinoids Screen Alcohol, Quantitative 375 H* 09/18/18 09/18/18 09/18/18 19:52 19:55 19:55 WBC RBC Hgb Hct MCV MCH MCHC RDW Plt Count MPV Neut % (Auto) Lymph % (Auto) Story % (Auto) Eos % (Auto) Baso % (Auto) Neut # (Auto) Lymph # (Auto) Story # (Auto) Eos # (Auto) Baso # (Auto) Sodium Potassium Chloride Carbon Dioxide Anion Gap BUN Creatinine Est GFR ( Amer) Est GFR (Non-Af Amer) POC Glucose (mg/dL) 113 H Random Glucose Calcium Total Bilirubin AST ALT Alkaline Phosphatase Total Protein Albumin Globulin Albumin/Globulin Ratio Triglycerides Cholesterol LDL Cholesterol Direct HDL Cholesterol Urine Color Yellow Urine Clarity Slighty-cloudy Urine pH 5.0 Ur Specific Cyril 1.018 Urine Protein 100 Urine Glucose (UA) Neg Urine Ketones 20 Urine Blood Moderate Urine Nitrate Negative Urine Bilirubin Negative Urine Urobilinogen 0.2-1.0 Ur Leukocyte Esterase Neg Urine RBC (Auto) 4 H Hyaline Casts 3-5 H Granular Casts (Auto) 22 Salicylates Urine Opiates Screen Negative Urine Methadone Screen Negative Acetaminophen Ur Barbiturates Screen Negative Ur Phencyclidine Scrn Negative Ur Amphetamines Screen Negative U Benzodiazepines Scrn Negative U Oth Cocaine Metabols Negative U Cannabinoids Screen Negative Alcohol, Quantitative 09/18/18 09/19/18 09/19/18 20:25 00:10 07:50 WBC RBC Hgb Hct MCV MCH MCHC RDW Plt Count MPV Neut % (Auto) Lymph % (Auto) Story % (Auto) Eos % (Auto) Baso % (Auto) Neut # (Auto) Lymph # (Auto) Story # (Auto) Eos # (Auto) Baso # (Auto) Sodium 135 136 Potassium 4.4 3.9 Chloride 95 L 99 Carbon Dioxide 18 L 19 L Anion Gap 26 H 22 H BUN 11 9 Creatinine 0.7 L 0.8 Est GFR ( Amer) > 60 > 60 Est GFR (Non-Af Amer) > 60 > 60 POC Glucose (mg/dL) Random Glucose 110 145 H Calcium 8.0 L 8.0 L Total Bilirubin AST ALT Alkaline Phosphatase Total Protein Albumin Globulin Albumin/Globulin Ratio Triglycerides 105 D Cholesterol 288 H LDL Cholesterol Direct 174 H HDL Cholesterol 89 H Urine Color Urine Clarity Urine pH Ur Specific C[place]il Urine Protein Urine Glucose (UA) Urine Ketones Urine Blood Urine Nitrate Urine Bilirubin Urine Urobilinogen Ur Leukocyte Esterase Urine RBC (Auto) Hyaline Casts Granular Casts (Auto) Salicylates Urine Opiates Screen Urine Methadone Screen Acetaminophen Ur Barbiturates Screen Ur Phencyclidine Scrn Ur Amphetamines Screen U Benzodiazepines Scrn U Oth Cocaine Metabols U Cannabinoids Screen Alcohol, Quantitative Assessment & Plan (1) Suicide attempt Status: Acute Comment: psyche is managing (2) Depression Status: Acute Comment: psyche is managing (3) HTN (hypertension) Status: Chronic Comment: BP stable. continue Metoprolol and Micardis (4) Alcohol abuse Status: Chronic Comment: psyche is managing
--- NOTE | 2018-09-19 16:55 | RAD ---
Date of service: 09/18/2018 HISTORY: routine COMPARISON: Frontal chest radiograph 12/31/2017. TECHNIQUE: 1 view obtained. FINDINGS: LUNGS: No interval pulmonary disease appreciated bilaterally. PLEURA: No significant pleural effusion identified, no pneumothorax apparent. CARDIOVASCULAR: No aortic atherosclerotic calcification present. Prominent cardiac silhouette is appreciated least on the basis of technical magnification with mild cardiomegaly not excluded. No pulmonary vascular congestion. OSSEOUS STRUCTURES: No significant abnormalities. VISUALIZED UPPER ABDOMEN: Normal. OTHER FINDINGS: None. IMPRESSION: Mild cardiomegaly not excluded. No pulmonary vascular congestion. No acute infiltrates bilaterally.
--- NOTE | 2018-09-19 17:45 | CARD ---
APPROVED REPORT Date of service: 09/18/2018 EKG Measurement Heart [id number] <Conclusion> Sinus tachycardia Otherwise normal ECG
--- NOTE | 2018-09-20 17:57 | PCM.PYCHPN ---
Psychiatric Progress Note - Psychiatric Progress Note Patient seen today, length of contact: chart reviewed case discussed with team pt seen Patient Chief Complaint: reports prior to admission had been drinking became depressed and was thinking of harming himself. now reports is somewhat less depressed reports feels as though he is trembling and feeling nervous on the inside. pt is receiving librium protocol. staff report pt is rx adherent and is seen about milieu Problems Identified/Issues Discussed: alteration in mood alteration in self care Medical Problems: per chart Diagnostic Results: per psychiatry per medicine per nursing per social work per recreational therapy DSM 5 Symptoms Update: alteration in mood, alteration in self care, potential etoh withdrawal Medication Change: No (maintain current librium team can readdress in am) Medical Record Reviewed: Yes Consults ordered or reviewed: pt being followed by medical team Mental Status Examination - Cognitive Function Orientation: Person, Place, Situation Attention: WNL Concentration: WNL Association: WNL Fund of Knowledge: [facility] Decription of patient's judgement and insights: impaired - Mood Mood: Depressed, Anxious - Affect Affect: Constricted, Depressed - Formal Thought Process Formal Thought Process: No Impairment - Homicidal Ideation Homicidal Ideation: No Goal/Treatment Plan - Goal/Treatment Plan Progress Toward Problem(s) and Goals/Treatment Plan: inpt milieu adjust meds per clinical status vital signs and clinical observation per protocol and per clinical status will maintain current librium dose frequency and team can readdress in am as pt continues to report feeling shaking tremors discharge planning in progress Estimated Date of D/C: 09/23/18 - Smoking Cessation Smoking Cessation Initiated: No Reason for not providing: pt defers
--- NOTE | 2018-09-21 15:23 | PCM.PYCHPN ---
Psychiatric Progress Note - Psychiatric Progress Note Patient seen today, length of contact: chart reviewed case discussed with team pt seen Patient Chief Complaint: I need to get help with the alcohol Problems Identified/Issues Discussed: pt evaluated with treatment team, presenting with depressed mood and anxious affect, motivational therapy provided, pt declined referral to inpatient rehab would like to join AA meetings, discussed increasing dose of zoloft , no reported side effects DSM 5 Symptoms Update: major depression alcohol dependence Medication Change: Yes (decrease librium) Medical Record Reviewed: Yes Mental Status Examination - Cognitive Function Orientation: Person, Place, Situation Attention: WNL Concentration: WNL Association: WNL Fund of Knowledge: WNL - Mood Mood: Depressed, Anxious - Affect Affect: Constricted, Depressed - Formal Thought Process Formal Thought Process: No Impairment - Suicidal Ideation Suicidal Ideation: No - Homicidal Ideation Homicidal Ideation: No Goal/Treatment Plan - Goal/Treatment Plan Need for Continued Stay: Severe depression anxiety, Discharge may exacerbated symptoms Progress Toward Problem(s) and Goals/Treatment Plan: decrease librium 10mg tid/ pt will be monitored for symptoms and signs of alcohol withdrawal increase neurontin 400 mg tid increase zoloft 50mg daily motivational group and supportive therapy Estimated Date of D/C: 09/23/18
--- NOTE | 2018-09-22 10:38 | PCM.PYCHPN ---
Psychiatric Progress Note - Psychiatric Progress Note Patient seen today, length of contact: chart reviewed case discussed with team pt seen Patient Chief Complaint: I feel better with the increase in zoloft Problems Identified/Issues Discussed: pt evaluated , reported improved mood, feeling less anxious, brighter affect, no reported side effects with the increase in zoloft, pt planning to start AA meetings on discharge, denied any current sucidl or homicidal ideation denied perceptual disturbances Medical Problems: hx of voluntary hospitalizations, hx of non compliance DSM 5 Symptoms Update: alcohol induced mood disorder Medication Change: Yes (discontinue librium) Medical Record Reviewed: Yes Mental Status Examination - Cognitive Function Orientation: Person, Place, Situation Attention: WNL Concentration: WNL Association: WNL Fund of Knowledge: WNL - Mood Mood: Depressed, Anxious - Affect Affect: Constricted, Depressed - Formal Thought Process Formal Thought Process: No Impairment - Suicidal Ideation Suicidal Ideation: No - Homicidal Ideation Homicidal Ideation: No Goal/Treatment Plan - Goal/Treatment Plan Need for Continued Stay: Severe depression anxiety, Discharge may exacerbated symptoms Progress Toward Problem(s) and Goals/Treatment Plan: discontinue librium neurontin 400 mg tid zoloft 50mg daily motivational group and supportive therapy Estimated Date of D/C: 09/23/18
[2018-09-22 17:59] VITALS: RESP 18
[2018-09-23 09:22] VITALS: BP 190/87; PULSE 73
[2018-09-23 09:26] VITALS: TEMP 99
--- NOTE | 2018-09-23 13:06 | PCM.PYCHDC ---
Mental Status Examination - Mental Status Examination Orientation: Person, Place, Situation Memory: Intact Mood: Neutral Affect: Broad Speech: Appropriate Attention: WNL Concentration: WNL Association: WNL Fund of Knowledge: WNL Formal Thought Process: No Impairment Description of patient's judgement and insight: partial insight fair judgment Psychotic Thoughts and Behaviors: pt denied psychotic symptoms, non elicited Suicidal Ideation: No Current Homicidal Ideation?: No Discharge Summary - Discharge Note Reason for Hospitalization: pt is 52 ys old male with previous diagnosis of generalized anxiety, depression and alcohol dependence , brought to ER after a suicidal attempt, jumping in front of a bus pt since last dischage has not been compliant with medications or follow up, relapsed on alcohol using about two bottles of wine daily, pt for past month has been unable to function at work resulting in loosing his job, he also became homeless, started feeling his life is worthless, feeling hopeless and helpless, attempted suicide by jumping infront of a bus on the unit continues to report passive suicidal ideation without active plan, denied perceptual disturbances, denied homicidal ideation Consultations:: List each consultation separately and include: 1. Reason for request. 2. Findings. 3. Follow-up Summary of Hospital Course include:: 1. Description of specific treatment plan utilized for patients during their course of treatmen. 2. Summarize the time- course for resolution of acute symptoms and/or regressed behaviors. 3. Describe issues identified and worked on during hospitalization. 4. Describe medication utilized. 5. Describe medical problems identified and treated. 6. Reassessment of suicide risk Summary of Hospital Course: pt on admission was started on librium protocol and monitored for symptoms and signs of alcohol ithdrawal pt was started on neurontin and zoloft motivational group and supportive therapy provided pt was compliant with treatment, attended groups, no reported side effects on discharge mental status was stable, pt denied any current suicidal or homicidal ideation denied perceptual disturbances - Diagnosis (1) Depression Current Visit: No Status: Acute - Final Diagnosis (DSM 5) Condition upon Discharge: STABLE DSM 5: major depression recurrent severe alcohol induced mood disorder Disposition: HOME/ ROUTINE Follow-up Treatment Plan: [facility] Prescriptions/Medication Reconciliation: Gabapentin [Neurontin] 400 mg PO TID 30 Days #90 cap Sertraline [Zoloft] 50 mg PO DAILY 30 Days #30 tab traZODone [Desyrel] 100 mg PO HS 30 Days #30 tab - Antipsychotic Medications Pt discharged on 2 or more routine antipsychotic medications: No
== END 2018-09-23 14:48 | disposition home or self-care (01) | DRG 885 ==
LOC: H.ER 17:14 → H.ERHOLD 09-19 03:35 → H.PSYCH 09-19 06:10
PROVIDERS: ADMIT Psychiatry & Neurology Psychiatry; ATTEND Psychiatry & Neurology Psychiatry
PROC: GZHZZZZ Group Psychotherapy (ICD-10-PCS; principal; 2018-09-20)
DX: F33.2 Major depressive disorder, recurrent severe without psychotic features (principal); F10.24 Alcohol dependence with alcohol-induced mood disorder; F10.229 Alcohol dependence with intoxication, unspecified; Y90.8 Blood alcohol level of 240 mg/100 ml or more; F41.1 Generalized anxiety disorder; I10 Essential (primary) hypertension; Z91.14 Patient's other noncompliance with medication regimen; Z91.19 Patient's noncompliance with other medical treatment and regimen